=== PATIENT | male | born 1995 | race Caucasian/White ===

== ENCOUNTER 2017-01-29 13:23 | Emergency (ER) | payer OTHER ==
[2017-01-29 13:28] VITALS: BP 136/86; PULSE 110; TEMP 98; BMI 24.5
--- NOTE | 2017-01-29 13:56 | PDOC ---
History of Present Illness - General Chief Complaint: Injury Stated Complaint: RT LEG PAIN Time Seen by Provider: 01/29/17 13:46 History Source: Patient - History of Present Illness Occurred: reports: other Lower Extremity Pain Location: left: foot Method of Injury: Yes: fell Past History - Past Medical History Allergies/Adverse Reactions: Allergies Allergy/AdvReac Type Severity Reaction Status Date / Time No Known Allergies Allergy Verified 01/29/17 13:28 Home Medications: Ambulatory Orders NK [No Known Home Medication] 01/29/17 - Psycho/Social/Smoking Cessation Hx Suicidal Ideation: No Smoking History: Never smoked Information on smoking cessation initiated: No Review of Systems - Review of Systems Musculoskeletal: Yes: Joint Pain, Joint Swelling *Physical Exam - Vital Signs Last Vital Signs Temp Pulse Resp BP Pulse Ox 98 F 110 H 18 136/86 98 01/29/17 13:25 01/29/17 13:25 01/29/17 13:25 01/29/17 13:25 01/29/17 13:25 - Physical Exam General Appearance: Yes: Appropriately Dressed. No: Apparent Distress HEENT: positive: Normal Voice Neck: positive: Supple Respiratory/Chest: negative: Respiratory Distress Extremity: positive: Tender, Swelling Integumentary: positive: Dry, Warm Neurologic: positive: Fully Oriented, Alert, Normal Mood/Affect ED Treatment Course - RADIOLOGY Radiology Studies Ordered: Category Date Time Status FOOT-LEFT [RAD] Stat Radiology 01/29/17 13:54 Ordered Medical Decision Making - Medical Decision Making 01/29/17 13:54 21 yo M, pw/ L foot pain and swelling after falling while skiing 3 days ago. Lateral foot mildly swollen and ecchymotic w/ sig ttp over proximal aspect of L 5th metatarsal M/l sprain, r/o fx -declines meds in ED -XR pending 01/29/17 14:17 XR neg for fx. Dc w/ supportive tx and ortho f/u as needed *DC/Admit/Observation/Transfer Diagnosis at time of Disposition: Foot sprain Qualifiers: Encounter type: initial encounter Laterality: left Qualified Code(s): S93.602A - Unspecified sprain of left foot, initial encounter - Discharge Dispostion Disposition: HOME Condition at time of disposition: Good - Referrals Referrals: STAFF,NOT ON [Primary Care Provider] - Ajit Trujillo MD [Staff Physician] - - Patient Instructions Printed Discharge Instructions: DI for Foot Sprain Additional Instructions: Take motrin as needed for pain. If pain persist after 2 weeks, follow up with orthopedics - Post Discharge Activity Work/School Note: Back to Work
== END 2017-01-29 14:19 | disposition home or self-care (01) ==
LOC: JERFT 13:23 → JER 13:23 → JERFT 14:19
DX: S93.602A Unspecified sprain of left foot, initial encounter (principal); W00.0XXA Fall on same level due to ice and snow, initial encounter; Y93.23 Activity, snow (alpine) (downhill) skiing, snowboarding, sledding, tobogganing and snow tubing; Y92.89 Other specified places as the place of occurrence of the external cause; Y99.8 Other external cause status
CPT/HCPCS: 73630-TC-LT; 99281-25